=== PATIENT | female | born 1955 | race Hispanic/Latino ===

== ENCOUNTER 2024-08-03 17:09 | Emergency (ER) | payer OTHER, SELFPAY ==
[2024-08-03 17:20] VITALS: BP 144/86
[2024-08-03 17:44] LABS: % Basophils 0.4 % (0-2); % Eosinophils 1.4 % (0-6); % Immature Granulocytes 0.2 % (0-0.5); % Lymphocytes 36.8 % (20.5-51.1); % Monocytes 6.6 % (1.7-9.3); % Neutrophils 54.6 % (42.2-75.2); Absolute Eosinophils 0.1 10^3/uL (0-0.7); Absolute Lymphocytes 1.9 10^3/uL (1.2-3.4); Absolute Monocytes 0.3 10^3/uL (0.1-0.6); Absolute Neutrophils 2.8 10^3/uL (1.4-6.5); Hemoglobin 13.3 g/dL (12.0-16.0); Mean Corpuscular Hgb 29.2 pg (27.0-31.0); Mean Corpuscular Volume 83.5 fL (81.0-99.0); Mean Platelet Volume 9.7 fL (7.4-10.4); Nucleated Red Blood Cells % 0 %; Platelet Count 247 10^3/uL (130-400); Red Blood Cell Count 4.55 10^6/uL (4.20-5.40)
[2024-08-03 17:58] LABS: ALT (SGPT) 16 U/L (0-35); AST (SGOT) 22 U/L (14-36); Albumin 5.1 g/dl (3.5-5.0); Alkaline Phosphatase 83 U/L (38-126); Blood Urea Nitrogen 19 mg/dl (7-17); Calcium 10.3 mg/dl (8.4-10.2); Carbon Dioxide 27 mmol/L (22-30); Chloride 104 mmol/L (98-107); Glucose 99 mg/dl (70-99); Potassium 4.3 mmol/L (3.5-5.1); Sodium 145 mmol/L (135-145); Total Bilirubin 0.7 mg/dl (0.2-1.3); Total Protein 7.9 g/dl (6.3-8.2); eGFR > 60.00
[2024-08-03 18:13] LABS: Troponin I < 0.012 ng/ml
[2024-08-03 19:40] VITALS: BMI 23.1
[2024-08-03 19:45] VITALS: BP 135/94
[2024-08-03 20:00] VITALS: BP 139/81
--- NOTE | 2024-08-03 20:29 | ED.GENMED ---
History of Present Illness
General
Chief Complaint: Cardiac Symptoms
Source: patient
Exam Limitations: none
Time Seen by Provider: 08/03/24 19:38
History of Present Illness
History of Present Illness:
This is a 68 year old female that comes in with c/o feeling like her heart is pounding, can't sleep, Shaking inside and can't be still. States that she had some back pain last week and went to see the PCP. Patient was seen at [facility] and had a CT
scan and work up. States that her family doctor gave her Cyclobenzaprine and she took 1 dose on Tuesday night. State that 1 hour later she felt like her heart was pounding, she couldn't sleep, shaking inside and she couldn't be still. States that
it has been like this since Tuesday. States that she has a very dry mouth. States that she has had chills, nausea, and just feels off. Denies any fever, SOB, abd pain, vomiting, diarrhea, headache, dizziness, urinary burning.
Past History
Past History
ED Past Medical History: None; Negative Arrthythmia, Asthma, Cancer, HTN, Hypercholesterolemia or NIDDM
ED Past Surgical History: Appendectomy and Gynecological (Tubal); Negative Cardiac or Cholecystectomy
Social History
Tobacco: Former smoker
Alcohol: None
Drug: None
Personal:
Living: with family
Employment: Employed
Family History
Family History: Hypertension
Review of Systems
Review of Systems
All Other Systems: ROS reviewed and negative except as documented in HPI and ROS
Constitutional: Reports chills; Denies fever
EENT: Reports no symptoms
Respiratory: Denies cough or trouble breathing
Cardiac: Reports chest pain (tightness)
ABD/GI: Reports nausea; Denies abdominal pain, vomiting or diarrhea
: Reports no symptoms; Denies dysuria, frequency or urgency
Musculoskeletal: Reports no symptoms
Skin: Reports no symptoms
Neurological: Reports other (Just feels off); Denies dizzy or headache
Psychiatric: Reports no symptoms
Phy Exam
General Physical Exam
General Presentation: no apparent distress
General age: appears stated age
General Skin: warm and dry
General Habitus: normal
General Mental: alert
General Hydration: dry mucous membranes
ENT Exam
ENT Exam: TM's normal, pharynx normal and neck supple
Eye Exam
Eye Exam: EOMI
Cardiovascular Exam
Cardiovascular Exam: regular rate/rhythm, no edema and normal peripheral pulses
Pulmonary Exam
Pulmonary Exam: lungs clear, no respiratory distress, no rales, chest non tender, no crackles, no rhonchi, no wheezing and no cough
Gastrointestinal Exam
Gastrointestinal Exam: normal bowel sounds, non tender, soft, no organomegaly, no pulsatile mass and non distended
Musculoskeletal Exam
Musculoskeletal Exam: full ROM and no edema
Skin Exam
Skin Exam: normal color, warm/dry, no rash and no petechia
Psychiatric Exam
Psychiatric Exam: normal mood/affect
Course
Orders/Labs/Results
Orders:
Orders
08/03/24 17:13
Electrocardiogram (*1) Urgent
Reason for Study: Palpitations
EKG- Treatment ONCE
08/03/24 17:32
Complete Blood Count/With Diff Urgent
Comprehensive Metabolic Panel Urgent
Troponin I Urgent
08/03/24 20:30
0.9% Sodium Chloride 1000 ml [Nss] 1,000 ml IV BOLUS
Ketorolac [Toradol] 30 mg IV NOW STA
08/03/24 20:36
Diphenhydramine [Benadryl] 25 mg IV NOW STA
Abnormal Lab Results
08/03/24
17:32
BUN 19 H mg/dl
(7-17)
Calcium 10.3 H mg/dl
(8.4-10.2)
Albumin 5.1 H g/dl
(3.5-5.0)
08/03/24 17:32
08/03/24 17:32
Dehydration. Calclium slightly elevated. Troponin <0.012
Vital Signs
Initial and Last Documented VS:
Initial Vital Signs
Temp Pulse Resp BP Pulse Ox
98.3 F 99 16 144/86 97
08/03/24 17:20 08/03/24 17:20 08/03/24 17:20 08/03/24 17:20 08/03/24 17:20
Last Documented Vital Signs
Temp Pulse Resp BP Pulse Ox
97.8 F 69 18 103/69 97
08/03/24 19:43 08/03/24 22:00 08/03/24 22:00 08/03/24 22:00 08/03/24 17:20
MDM/Problems Addressed
Differential Diagnosis Includes:
Medication reaction.
MDM/Problems Addressed:
This is a 68 year old female that took Cyclobenzaprine on Tuesday and has felt like her heart was racing and she can't be still and feels shake inside
Will check labs. Give IV fluid and medication with Benadryl and Toradol.
Back into see patient. Patient is feeling much better. Explained that she can use Benadryl at home to help her relax. Patient to follow up with the family doctor. Return with any concerns .
Chronic conditions affecting care:
NA
Acute Exacerbation and/or Progression of Chronic Illness:
NA
*Pulse Oximetry
Patient hypoxic: no
*EKG
Interpreted by ED Provider?: Yes
Heart Rate: 80
Rate: normal
Rhythm: sinus
[place]: left axis deviation
Interval: normal interval
QRS Pattern: normal QRS
Ischemia: no ischemia
*[employer] Interpretation
Rate: normal
Heart Rate: 71
*Critical Care Note
Total Time (30-74mins, 75-104mins- exclusive of procedures): Not Applicable
ED Attending Note
-
Portions of this chart may have been created with voice recognition software.� Occasional wrong word or��sound alike� substitutions may have occurred due to the inherent limitations of voice recognition software.
Discharge Plan
Departure
Patient Disposition: Home (Routine Discharge)
Date of Disposition: 08/03/24
Time of Disposition: 22:40
Patient with high blood pressure during this ER visit?: No
Condition: Good
Covid-19: Not Applicable
Discharge Problem:
Medication adverse effect
Instructions: Adverse Drug Reactions, Adult ED
Prescriptions:
No Action
lorazepam 0.5 mg Tablet
0.5 mg PO HS
omeprazole 20 mg Tablet,Delayed Release (Dr/Ec)
20 mg PO DAILY
Referrals:
BRIANDA BAILEY DO [Family Provider] - Call in 1-3 days for appt
Activity Restrictions/Additional Instructions:
As discussed, your blood work show slight Dehydration. Please increase your water intake to 8-8oz glasses daily. You may use Benadryl 50mg every 8 hours at home to help your relax. Follow up with the family doctor for further evaluation. IF YOU HAVE
ANY OTHER CONCERNS PLEASE RETURN TO THE EMERGENCY ROOM.
Interventions
Interventions:
*Risk Screen - Suicide Last Done: 08/03/24 17:22
*General Assessment Last Done: 08/03/24 19:47
*Neglect/Abuse Screening Last Done: 08/03/24 17:22
ED- Fall Risk Assessment Last Done: 08/03/24 19:47
*ED COVID-19 Vaccine History Last Done: 08/03/24 19:47
ED- Pulmonary Assessment Last Done: 08/03/24 19:47
ED- Cardiac Assessment Last Done: 08/03/24 19:47
Discharge Date and Time
Print Language: GIBRALTARIAN
[2024-08-03] MEDS: TORADOL 30 MG IV (20:37)
[2024-08-03] MEDS: BENADRYL 25 MG IV (20:40)
[2024-08-03] MEDS: NSS 1000 IV (20:40)
[2024-08-03 21:00] VITALS: BP 106/72
[2024-08-03 22:00] VITALS: BP 103/69
== END 2024-08-03 22:55 | disposition home or self-care (01) ==
LOC: EMR 17:09
PROVIDERS: Emergency Medicine; EMERGENCY PHYSICIAN Student in an Organized Health Care Education/Training Program; FAMILY PHYSICIAN Internal Medicine
DX: R00.2 Palpitations (principal); T48.1X5A Adverse effect of skeletal muscle relaxants [neuromuscular blocking agents], initial encounter; Z87.891 Personal history of nicotine dependence; E86.0 Dehydration
CPT/HCPCS: 96374; 96375; 96361; 99284; 80053; 84484; 85025; 93005